=== PATIENT | female | born 1975 | race Caucasian/White ===

== ENCOUNTER 2023-04-27 11:07 | Emergency (ER) | payer SELFPAY ==
[2023-04-27] MEDS ORDERED: Diltiazem 25 MG/5 ML SDV IVPUSH ONE (11:21)
[2023-04-27 11:44] LABS: BASOPHILS PERCENT AUTO 0.3 % (0.2-1.5); EOSINOPHILS PERCENT AUTO 0.3 % (0.6-8.1); HEMATOCRIT 42.7 % (34.2-48.2); HEMOGLOBIN 15.1 g/dL (11.4-15.5); LYMPHOCYTES PERCENT AUTO 12.3 % (18.4-52.1); MEAN CORPUSCULAR HEMOGLOBIN 37.9 pg (23.9-33.9); MEAN CORPUSCULAR HGB CONC 35.5 g/dL (31.9-34.8); MEAN CORPUSCULAR VOLUME 106.8 fL (76.7-100.5); MEAN PLATELET VOLUME 8.8 fL (7.1-12.4); MONOCYTES ABSOLUTE AUTO 0.4 x10-3/uL (0.3-1.0); MONOCYTES PERCENT AUTO 4.3 % (4.4-15.7); NEUTROPHILS PERCENT AUTO 82.8 % (30.8-76.2); PLATELET COUNT,PLT 155 x10(3)uL (151-488); WHITE BLOOD CELL COUNT,WBC 8.5 x10-3/uL (3.0-10.3)
[2023-04-27 11:49] LABS: BLOOD UREA NITROGEN,BUN 9 mg/dL (7-18); BUN/CREATININE RATIO 11.3 (9-20); CALCIUM 9.3 mg/dL (8.6-10.2); CARBON DIOXIDE,CO2 28 mmol/L (21-32); CHLORIDE,CL 100 mmol/L (100-110); CREATININE 0.8 mg/dL (0.55-1.02); ESTIMATED GFR 92 mL/min (>60); GLUCOSE RANDOM 144 mg/dL (80-116); POTASSIUM,K 5.2 mmol/L (3.5-5.3); SODIUM,NA 136 mmol/L (135-145)
[2023-04-27 12:01] LABS: A/G RATIO 0.7; ALANINE AMINOTRANSFERASE,ALT 122 U/L (12-36); ALBUMIN 3.5 g/dL (3.5-5.2); ALKALINE PHOSPHATASE 123 IU/L (56-112); AMYLASE 68 U/L (25-115); BILIRUBIN TOTAL 2.1 mg/dL (0.1-1.3); PROTEIN TOTAL,TP 8.3 g/dL (6.0-8.0)
[2023-04-27 12:06] LABS: ASPARTATE AMNIOTRANSFERASE,AST 214 IU/L (5-25)
[2023-04-27] MEDS ORDERED: amLODIPine 10 MG Tab PO STA (12:26)
== END 2023-04-27 13:01 | disposition home or self-care (01) ==
LOC: FB.ED 11:07
DX: K70.9 Alcoholic liver disease, unspecified (principal); F10.20 Alcohol dependence, uncomplicated; R73.9 Hyperglycemia, unspecified; Z88.0 Allergy status to penicillin
CPT/HCPCS: 36415; 80053; 80307; 82150; 83690; 85025; 99282; A9270-GY